=== PATIENT | male | born 1990 | race Caucasian/White ===

== ENCOUNTER 2018-07-27 00:08 | Emergency (ER) | payer SELFPAY ==
[~2018-07-27] VITALS: Ht 185.4 cm; Wt 132.7 kg
[2018-07-27] MEDS ORDERED: IBUPROFEN600 MG PO (02:34)
[2018-07-27 03:00] VITALS: BP 141/80
== END 2018-07-27 03:02 | disposition home or self-care (01) | DRG 563 ==
LOC: ED 00:08
DX: S83.011A Lateral subluxation of right patella, initial encounter (principal); X58.XXXA Exposure to other specified factors, initial encounter; Y93.64 Activity, baseball; Y92.320 Baseball field as the place of occurrence of the external cause
CPT/HCPCS: L1830